=== PATIENT | male | born 1975 | race Caucasian/White ===

== ENCOUNTER 2025-01-14 05:53 | Observation (INO) ==
--- NOTE | 2025-01-03 13:19 | Anesthesiology Consultation ---
Date of Service January 03, 2025 Assessment & Plan (1) Encounter for pre-operative examination: Chart Review Chart Review: Acceptable Risk for Surgery (pending surgeon ordered PCP clearance ) and Patient seen in Pre Admission Testing - Awaiting PCP clearance 01/06/25- Dr Castellanos- [facility]- please fax preop testing to PCP for review Per PAT appt on 01/03/25, no recent illness/disease exposures, illness related symptoms, or recent illness/disease positive tests. Will leave to surgeon's discretion if preop Covid testing needed Teaching & Discussion Pre-Anesthesia Teaching/Discussion Notes: Instructed NPO after midnight before surgery,except medications with 15 cc of water. Medication instructions provided according to the PAT guidelines. History Surgery Operation Date: 01/14/25 10:55 Proposed Procedures p C5-C6 Anterior Cervical Discectomy and Fusion - Roger Bess DO Height/Weight Height: 5 ft 10 in Weight: 103.9 kg Allergies Allergy/AdvReac Type Severity Reaction Status Date / Time No Known Drug Allergies Allergy Unknown Verified 12/23/24 12:27 Medications Home Medications Medication Instructions Recorded Confirmed Last Taken No Known Home Medications 12/23/24 12/23/24 Unknown Past Medical History Medical History Cervical radiculopathy Obesity (BMI 30-39.9) Exercise / Class Metabolic Activity II 4-5 Yardwork/Stairs/Walk up hill (one flight of stairs - no chest pain or SOB ) Past Family History Family History Other No family history of adverse response to anesthesia Past Surgical History Surgical History H/O lumbar discectomy L3-L5 per pt History of arthroscopy of left shoulder History of colonoscopy History of esophagogastroduodenoscopy (EGD) History of tonsillectomy History of vasectomy Past Anesthesia History No Hx of Anesthesia Complications and No Family Hx of Anesthesia Complications (with exception to father- slow to wake (groggy) - no reintubation or ICU stay and PONV ) History of PONV No Hx of PONV and Hx of Motion Sickness Social History Smoking Status: Former smoker Do You Dip or Chew Tobacco: No Smoking End Date: 01/2024 Hx Alcohol Use: No Hx Substance Use: No Review of Systems - Occ reflux- relieved with OTC Omeprazole Patient denies chest pain, shortness of breath, dyspnea on exertion, cough, wheezing, palpitations. No hx of seizures, stroke, AR, apnea/snoring. No hx of blood clots or blood transfusions Physical Exam Vital Signs VITALS BP 108/60 P 66 TEMP 98.0 SP02 97% RESP 16 Constitutional no acute distress ENMT Mouth: no TMJ clicking Thyromental Distance: > or= 3.5 Finger Breadths (4.0) Mallampati Class: III Full top denture Missing bottom side teeth and molars Neck + limited neck extension and + facial hair (advised to shave/trim ) Respiratory normal respiratory effort; no respiratory distress Auscultation: lungs clear to auscultation bilaterally; no wheezes Cardiovascular Rate/Rhythm: regular rate and regular rhythm Heart Sounds: no murmur Vessels: no carotid bruit Musculoskeletal Spine: + pain with cervical ROM Extremities: extremities normal to inspection Psychiatric Orientation: alert Lab Results Anesthesia Preop Results Results Anesthesia Widget: WBC 6.44 K/ul (4.8-10.8) 01/03/25 Hgb 15.9 g/dl (14.0-18.0) 01/03/25 Hct 43.5 % (42.0-52.0) 01/03/25 Plt 145 K/uL (130-400) 01/03/25 Na 140 mmol/L (136-145) 01/03/25 K 3.8 mmol/L (3.5-5.1) 01/03/25 Cl 107 mmol/L (98-107) 01/03/25 CO2 27 mmol/L (21-32) 01/03/25 BUN 11 mg/dl (6-23) 01/03/25 Creat 0.97 mg/dl (0.6-1.4) 01/03/25 Glucose Level 76 mg/dl (70-99(Fasting)) 01/03/25 PT 10.6 Seconds (9.0-12.0) 01/03/25 PTT 29 Seconds (21-31) 01/03/25 INR 1.0 (0.9-1.1) 01/03/25 Urine Color Yellow 01/03/25 Urine Appearance Clear (Clear) 01/03/25 Urine pH 7.0 (4.5-7.5) 01/03/25 Urine Specific [place] 1.020 (1.000-1.030) 01/03/25 Urine Protein Negative (Negative) 01/03/25 Urine Glucose (UA) Negative (Negative) 01/03/25 Urine Ketones Negative (Negative) 01/03/25 Urine Blood Negative (Negative) 01/03/25 Urine Nitrite Negative (Negative) 01/03/25 Urine Bilirubin Negative (Negative) 01/03/25 Urine Urobilinogen Negative (Negative) 01/03/25 Urine Leukocyte Esterase Negative (Negative) 01/03/25 Blood Type O Positive 01/03/25 Antibody Screen NEGATIVE 01/03/25 Testing Electrocardiogram Date: 01/03/25 Findings: + SB @ (59bpm) Otherwise normal EKG per cardio Chest X-Ray Date: 01/03/25 Findings: + NAD
[2025-01-14] MEDS: CeleBREX 200 MG CAP PO SCH (06:38)
[2025-01-14] MEDS: LR 15ML/HR IV SCH (06:38)
[2025-01-14] MEDS: GABAPENTIN 900 MG DOSE PO SCH (06:38)
[2025-01-14] MEDS: LR 60ML/HR IV SCH (06:38)
[2025-01-14] MEDS: ACETAMINOPHEN 500 MG TAB PO SCH (06:38)
[2025-01-14] MEDS ORDERED: ATROPINE SULFATE 0.1 MG/ML 10ML SYR IV PRN (07:02)
[2025-01-14] MEDS ORDERED: HYDROmorphone INJ 2 MG/ML SYR/VIAL IV PRN (07:02)
[2025-01-14] MEDS ORDERED: ONDANSETRON INJ 2 MG/ML 2 ML VIAL ONE (07:27)
[2025-01-14] MEDS ORDERED: GLYCOPYRROLATE 0.2 MG/ML VIAL ONE (07:27)
[2025-01-14] MEDS ORDERED: LIDOCAINE 2% 2 ML VIAL/AMP(20MG/ML) INFIL ONE (07:27)
[2025-01-14] MEDS ORDERED: ROCURONIUM BROMIDE 10 MG/ML 5 ML VIAL IV ONE (07:27)
[2025-01-14] MEDS ORDERED: NEOSTIGMINE METHYLSULFATE 1 MG/ML 10ML VIAL ONE (07:27)
[2025-01-14] MEDS ORDERED: MIDAZOLAM HCL 1 MG/ML 2ML VIAL ONE (07:27)
[2025-01-14] MEDS ORDERED: PROPOFOL IV EMULSION 10 MG/ML 20 ML VIAL IV ONE (07:27)
[2025-01-14] MEDS ORDERED: DEXAMETHASONE SOD INJ 4 MG/ML VIAL ONE (07:27)
--- NOTE | 2025-01-14 07:40 | History & Physical Bridge Note ---
Date of Service January 14, 2025 History & Physical Bridge Note I have examined the patient, reviewed the History & Physical and in the interval since the performance of the History & Physical I have noted the following changes of clinical significance: no changes noted
--- NOTE | 2025-01-14 07:41 | History & Physical Report ---
Date of Service January 14, 2025 Assessment & Plan (1) Cervical spondylosis with radiculopathy: Plan: Anterior cervical discectomy and fusion C5-C6 History of Present Illness Chief Complaint: Neck and arm pain Primary Care Provider: Sonido Hill MD This is a 44-year-old male presents for chronic persistent neck and arm pain with failed course of nonoperative care is here for surgical invention. Allergies Allergy/AdvReac Type Severity Reaction Status Date / Time No Known Drug Allergies Allergy Unknown Verified 01/14/25 06:15 Home Medications Medication Instructions Recorded Confirmed Type No Known Home Medications 12/23/24 01/14/25 History Past Med/Surg History Problem List (Updated 01/14/25 @ 07:41 by Roger Bess DO) Cervical spondylosis with radiculopathy Encounter for pre-operative examination No known health problems Medical History (Updated 01/14/25 @ 07:41 by Roger Bess DO) HLD (hyperlipidemia) Per PCP records ANDIE (obstructive sleep apnea) Mild per PCP records Obesity (BMI 30-39.9) Cervical radiculopathy Surgical History History of arthroscopy of left shoulder History of esophagogastroduodenoscopy (EGD) History of colonoscopy History of vasectomy History of tonsillectomy H/O lumbar discectomy L3-L5 per pt Family History Other No family history of adverse response to anesthesia Social History (System 12/23/24 @ 12:27 by Brenda Reyes) Smoking Status: Former smoker Smoking End Date: 01/2024; Second Hand Exposure: No; Do You Dip or Chew Tobacco: No; Tobacco Cessation Education Requested by Patient: No Hx Alcohol Use: No Hx Substance Use: No Preferred Language: Dutch Communication Ability: Effective Steam Turbine Operator Required: No Beliefs That Will Affect Care: None Current Living Situation: Alone Other Information That Helps Us Care for You: No Feels Safe at Home: Yes Safety Concerns: Feels Safe At This Time Assistive Devices: Denture - Upper Physical Exam Physical Exam: Patient is alert and oriented Heart regular rhythm Lungs clear Results & Data Results & Data Vital Signs (Past 12 Hours) Vital Signs Temp Pulse Resp BP Pulse Ox O2 Del Method 01/14/25 06:27 36.5 C 49 L 18 124/66 97 Room Air
[2025-01-14] MEDS: ceFAZolin 330 MG/ML 1 GM VIAL ONE (08:22)
[2025-01-14] MEDS: FLOSEAL HEMOSTATIC MATRIX 10ML TOP ONE (08:22)
--- NOTE | 2025-01-14 09:04 | Operative Report ---
Post Operative Report Pre & Post Diagnosis Operation Date: 01/14/25 07:45 Pre-Op Diagnosis: (1) Cervical spondylosis with radiculopathy: Post-Op Diagnosis: (1) Cervical spondylosis with radiculopathy: I identified the patient and participated in the time-out.: Yes Procedure Operation Date: 01/14/25 07:45 Actual Procedures #1 anterior cervical discectomy with bilateral foraminotomies C5-C6. #2 anterior cervical arthrodesis C5-C6. #3 placement of Spira 8 mm cage filled with os design bone graft C5-C6. #4 application of K2 M plate screws across C5-C6. Surgeon Roger Bess, Oracle Database Analyst Amauri Banks Estimated Blood Loss 10 Findings Consistent with Post-Op Diagnosis Specimens None Indications This is a 49-year-old male presents publish diagnosis of failed course of nonoperative care is here for surgical invention. Description of Procedure Patient met with identified informed consent obtained. Patient was then taken to the operative suite underwent intubation patient placed in spine position Marvin elevated Fitzpatrick head. All bony prominences well-padded eyes inspected to ensure no external pressure placed upon them. Anterior cervical spine was then prepped and draped in normal sterile fashion. With the assistance of fluoroscopy identified the C5-C6 disc base and a transverse incision was placed along the right anterior aspect the cervical spine overlying this region. Blunt dissection with assistance of bipolar electrocautery performed down to and e xposing the anterior cervical spine at C5-C6. A self retaining retractor was placed. Then performed a complete discectomy of C5-C6 out to the ankle vertebral joints bilaterally. Marcellus distracting pins utilized to assist in visualization. Removed all posterior annular fibers longitudinal ligament bilateral foraminotomies performed. Endplates burred to subcortical bleeding bone and 8 mm Spira cage filled with os design bone graft tapped in position. Distracting apparatus was removed. All anterior osteophytes burred to smooth cortical surface and a cage from plate and screws applied with the assistance of fluoroscopy. The incision was then copiously irrigated explored to ensure no damage to stranding structures or remaining bleeding. 10 round MOUSTAPHA drain inserted. The incision was then closed with 2 Vicryl in the fascia and a 4 Monocryl for final skin closure. Steri-Strips sterile dressing placed. Patient waken taken PACU in stable condition. Please note Amauri sierra was present of the entire procedure and on the patient positioning complex portion of the surgery and final skin closure. Spinal cord monitoring was utilized procedure no changes noted. Im ordering 10 grams of Collagen Powder [facility] A[facility] Primary Dressing) and 10 bordered super absorbent (HCP A6196 Secondary Dressing) to treat an incision wound that was caused by a spine procedure. The incision is a pproximately 2 cm(W) x 4 cm(L) down to the spinal column and epidural space 2 cm (D) in size and is a full thickness wound showing no signs of infection. Collagen comes in 1 gram packets so 10 packets were ordered. Given the size of the wound, with moderate exudate I chose to order a 10 day supply. The patient will be provided instructions for proper application of the collagen wound kit. The patient will be asked to apply the collagen powder daily and then cover it with sterile dressings dispensed. Collagen was selected as I expect the collagen to attract monocytes and fibroblasts, act as a sacrificial substrate for MMPs, and ultimately proved a matrix for tissue and vessel growth. The collagen will act as a primary dressing in this scenario. It is medically necessary for proper healing of these wounds to improve bioavailability and contact with each wound surface, this is also to help prevent infection of wounds and promote healing ultimately leading to a better healing outcome and limit the risk of infection. I attest to the content of the Intraoperative Record and any orders documented therein. Any exceptions are noted below.
--- NOTE | 2025-01-14 09:42 | Fluoroscopy Report ---
FL cervical 2-3V CLINICAL HISTORY: C5-C6 DISECTOMY/FUSION COMPARISON STUDY: None FLUOROSCOPY TIME: 12 seconds FLUOROSCOPY IMAGES: 3 EXPOSURE DOSE: 2.7 mGy FINDINGS: Fluoroscopy was provided for C5-6 anterior plate-screw fusion. IMPRESSION: Intraoperative fluoroscopy. ACT 112: Negative or not required by law. Electronically signed by: Ryan Chandra M.D. 01/14/2025 9:41 AM
[2025-01-14] MEDS: ONDANSETRON INJ 2 MG/ML 2 ML VIAL IV PRN (10:01)
[2025-01-14] MEDS: PROMETHAZINE HCL 6.25 MG in SODIUM CHLORIDE 0.9% 50 ML IV PRN (10:10)
--- NOTE | 2025-01-14 11:04 | Anesthesiology Progress Note ---
Date of Service January 14, 2025 Anesthesia Post Procedure Vital Signs Vital Signs: Temp Pulse Resp BP BP Pulse Ox O2 Del Method 01/14/25 10:35 36.1 C L 54 L 14 129/79 92 Nasal Cannula 01/14/25 10:25 59 L 15 144/81 H 91 Room Air 01/14/25 10:15 57 L 14 142/82 H 93 Room Air 01/14/25 10:05 48 L 16 144/92 H 93 Room Air 01/14/25 09:55 52 L 14 131/78 96 Room Air 01/14/25 09:45 57 L 16 125/78 97 Room Air 01/14/25 09:35 60 14 141/92 H 98 Oxymask 01/14/25 09:25 62 22 146/89 H 98 Oxymask 01/14/25 09:17 36.0 C L 64 11 L 140/77 98 Oxymask 01/14/25 06:27 36.5 C 49 L 18 124/66 97 Room Air O2 Flow Rate 01/14/25 10:35 2 01/14/25 10:25 01/14/25 10:15 01/14/25 10:05 01/14/25 09:55 01/14/25 09:45 01/14/25 09:35 4 01/14/25 09:25 4 01/14/25 09:17 6 01/14/25 06:27 Pain Intensity Right Neck: Pain Intensity: 4 Right Arm: Pain Intensity: 2 Transfer of Care Handoff Completed per policy Notes Mental Status: alert / awake / arousable and participated in evaluation Patient Amnestic to Procedure: Yes Nausea / Vomiting: adequately controlled Pain: adequately controlled Airway Patency, RR, SpO2: stable & adequate BP & HR: stable & adequate Hydration State: stable & adequate Anesthetic Complications: no major complications apparent
[2025-01-14] MEDS ORDERED: diphenhydrAMINE Capsule 25 MG CAP PO PRN (11:21)
[2025-01-14] MEDS ORDERED: ONDANSETRON 4 MG OD TAB PO PRN (11:21)
[2025-01-14] MEDS ORDERED: MAGNESIUM HYDROXIDE SUSP 30 ML UDC PO PRN (11:21)
[2025-01-14] MEDS ORDERED: HYDROmorphone INJ 1 MG/ML SYRINGE IV PRN (11:21)
[2025-01-14] MEDS ORDERED: ALUMINUM/MAGNESIUM SUSP 30 ML UDC PO PRN (11:21)
[2025-01-14] MEDS ORDERED: dexAMETHasone 8 MG in SYRINGE 0 ML IV PRN (11:21)
[2025-01-14] MEDS ORDERED: ONDANSETRON INJ 2 MG/ML 2 ML VIAL IV PRN (11:21)
[2025-01-14] MEDS ORDERED: LORazepam 0.5 MG TAB PO PRN (11:21)
[2025-01-14] MEDS ORDERED: DO NOT ADMINISTER FLU VACCINE PRN (11:21)
[2025-01-14] MEDS ORDERED: PROMETHAZINE 12.5 MG/50.5 ML BAG IV PRN (11:21)
[2025-01-14] MEDS ORDERED: NALOXONE HCL 0.4 MG/1 ML VIAL/CARP IV PRN (11:21)
[2025-01-14] MEDS ORDERED: RACEPINEPHRINE 2.25% NEBU SOLN 0.5 ML VIAL INH PRN (11:21)
[2025-01-14] MEDS ORDERED: SOD PHOSPHATE/SOD BIPHOSPHATE ENEMA 132 ML BTL PR PRN (11:21)
[2025-01-14] MEDS ORDERED: FAMOTIDINE 20 MG TAB PO PRN (11:21)
[2025-01-14] MEDS ORDERED: ACETAMINOPHEN 1,000 MG/100 ML VIAL IV PRN (11:21)
[2025-01-14] MEDS ORDERED: METOCLOPRAMIDE HCL INJ 5 MG/ML 2 ML VIAL IV PRN (11:21)
[2025-01-14] MEDS ORDERED: ACETAMINOPHEN 500 MG TAB PO PRN (11:21)
[2025-01-14] MEDS ORDERED: HYDROmorphone INJ 0.5 MG/0.5 ML SYR IV PRN (11:21)
[2025-01-14] MEDS ORDERED: DO NOT ADMINISTER PNEUMOCOCCAL VACCINE PRN (11:21)
[2025-01-14] MEDS: PROMETHAZINE HCL INJ 25 MG/ML 1 ML VIAL ONE (13:14)
[2025-01-14] MEDS: SODIUM CHLORIDE 0.9% 50 ML BAG ONE (13:14)
[2025-01-14] MEDS: LACTATED RINGER'S 1,000 ML IV SCH (13:42)
[2025-01-14] MEDS: DOCUSATE SODIUM/SENNA 50/8.6MG TAB PO SCH (21:15)
[2025-01-15] MEDS: POLYETHYLENE (MIRALAX) 17 GM PACK PO SCH (05:07)
[2025-01-15] MEDS: dexAMETHasone 6 MG in SYRINGE 0 ML IV SCH (07:56)
--- NOTE | 2025-01-15 07:57 | Discharge Summary ---
Date of Service January 15, 2025 Admission HPI Per Admitting Provider This is a 44-year-old male presents for chronic persistent neck and arm pain with failed course of nonoperative care is here for surgical invention. Principal Diagnosis Cervical spondylosis with radiculopathy Discharge Data Allergies Allergy/AdvReac Type Severity Reaction Status Date / Time No Known Drug Allergies Allergy Unknown Verified 01/14/25 06:15 Procedures Performed Operation Date: 01/14/25 07:45 Actual Procedures p C5-C6 Anterior Cervical Discectomy and Fusion(Not Applicable) - Roger Bess DO Ordered Studies 01/14/25 [place] cervical 2-3V Routine Hospital Course (1) Cervical spondylosis with radiculopathy: Patient had 1 anterior cervical discectomy fusion trial as well as taken the orthopedic for postoperative. Postop he progressed appropriately. Swallowing well. No hoarseness. Arm symptoms improved. MOUSTAPHA drain decreasing. Separately discharged home. Discharge orders and instructions from the chart for further review. Total Time Total Time Spent Total Time Spent (In Minutes): 20 minutes Discharge Plan Discharge Items Patient Disposition: Home - Self-Care Reason For Visit: Herniation of Cervical Intervertebral Disc with Ra Discharge Diagnosis: Cervical spondylosis with radiculopathy Activity: As commented below Non-emergency contact: Primary Care Provider Call non-emergency contact if: you have any medication questions Follow-up/Referrals: Sonido Hill MD [Primary Care Provider] - Diet: Regular Addtl Attending Provider Instructions: ACTIVITY RECOMMENDATIONS: SELF CARE INSTRUCTIONS AFTER CERVICAL FUSIONS 1. No smoking. Smoking drastically decreases the chance of a solid fusion. 2. No bending, lifting more than 5 pounds, or twisting (roll like a log when turning in bed). 3. You may shower 3 days after surgery. Thoroughly dry wound. Do not soak in the tub. 4. Cervical collar: Must be worn at all times including sleeping. You may remove the brace only to bath, eat and if you are sitting in a recliner. 5. Please walk as much as you can for exercise. Gradually increase the distance that you walk as your endurance increases. 6. You may return to previous diet. SPECIAL CARE INSTRUCTIONS: VERY IMPORTANT TO READ AND REVIEW A. Do not take any anti-inflammatory medications (i.e. Indocin, Advil, Aspirin, Naprosyn, Aleve, Motrin, etc.) as these may inhibit the chance of a solid fusion. Tylenol is okay to take. B. Your surgical incision has been closed with a cosmetic suture under the skin that will dissolve in about 6 weeks. In 14 days, you can use a pair of clean scissors and cut the suture that is left outside of the skin at the ends of your incision. C. Complications are uncommon, but please contact us if you have any signs or symptoms of: 1. wound infection (fever higher than 102.5 degrees F, redness, separation of wound, drainage, or increasing pain from the incision) 2. blood clots in legs (pain, swelling, redness and warmth in legs) 3. urinary tract infection (fever higher than 102.5 degrees, burning upon urination or increased frequency of urination) 4. nerve problems (inability to walk on your toes or heels, numbness, loss of bowel or bladder control) 5. any other symptoms that concern you. D. Please call the office at if you have any concerns or questions about your operation or recovery. MANAGING PAIN AFTER SPINAL SURGERY 1. Narcotic medication is intended for short-term use and will be provided for surgical pain. Surgical pain usually lasts for a period of 4-6 weeks. Narcotic medication includes Percocet, Vicodin, Darvocet, Tylenol #3 or Lortab. 2. Longer-term pain is more appropriately treated with non-narcotic medication such as Tylenol ES. 3. Muscle spasm is not appropriately treated with narcotics. Muscle relaxers such as Soma, Flexeril or Skelaxin can be used along with Tylenol ES. 4. Remember that we all live with some "aches and pains". This is not unusual or uncommon after an injury or as we get older. 5. We will provide appropriate medication within the normal guidelines of their prescribed use. We will also be very cautious and aware of potential abuse and extended duration of patients' medication needs. 6. Please allow 2-3 days to process refills. Prescriptions will not be mailed but must be picked up at the office. FOLLOW UP VISIT: Keep your scheduled follow-up appointment. Any questions, please call the office at . Pending Studies at Discharge: No Stand-Alone Forms: My [facility] [employer], Smoking Cessation Medications and DC Order Prescriptions: New tramadol 50 mg tablet 50 mg PO Q6H PRN (Reason: pain, moderate) Qty: 30 0RF oxycodone 5 mg tablet 5 mg PO Q6H PRN (Reason: pain) Qty: 20 0RF Rx Instructions: Oxycodone for severe pain tramadol for moderate pain Discharge Orders: Discharge Order (Routine); Ordered 01/15/25 Ordered By: Roger Bess Admission Data Admit Date/Time: 01/14/25 09:08 Attending Provider: Roger Bess Admit Provider: Roger Bess Primary Care Provider: Sonido Hill
== END 2025-01-15 10:08 | disposition home or self-care (01) ==
LOC: PACUINP 05:53 → ASU 05:53 → MERGE 10:55 → 3E 13:09